=== PATIENT | female | born 1975 | race Caucasian/White ===

== ENCOUNTER → 2016-09-29 | Emergency (ER) | payer MEDICAID, OTHER ==
[~2016-09-29] VITALS: Wt 120.5 kg
[~2016-09-29] MED LIST: CYCL-319 PO; HYDROCODONE/APAP (5/325) TAB PO ONE; NAPR-260 PO
--- NOTE | 2016-09-29 20:49 | RADRPT ---
PROCEDURE: US DVT. CLINICAL INDICATION: Right lower extremity pain and swelling. TECHNIQUE: Multiple longitudinal and transverse images of the right lower extremity veins were obt ained with naidu scale and color Doppler imaging. 2D grayscale measurements with compression, color Doppler flow, and augmentation was performed. The calf veins were interrogated as well. COMPARISON: No prior studies are available for comparison. FINDINGS: The right common femoral, superficial femoral and popliteal veins are normally compressible througho ut. Color flow demonstrates normal filling of the vessel. Normal waveforms are visualized and ther e is normal response to augmentation. The calf veins are visualized and are equally unremarkable. IMPRESSION: 1. No evidence of a deep vein thrombosis involving the right lower extremity. RPTAT: QQ .Angel Black MD, Date Time Electronically viewed and signed by .Angel Black MD, MD on 09/29/2016 20:48 .N/
[2016-09-29 21:08] VITALS: BP 132/86; PULSE 60; RESP 17; TEMP 98
--- NOTE | 2016-09-29 23:59 | ERD ---
ER Documentation Chief Complaint Date/Time DATE: 09/29/16 TIME: 23:56 Chief Complaint RIGHT LEG PAIN X3 WEEKS, NO INJURY HPI This patient is a 41-year-old female presenting to the emergency department with complaints of right calf pain ongoing intermittently for the past 5 weeks. The patient reports associated symptoms of swelling. Symptoms are worsening. Radiation occurs proximally. Alleviating factors include Advil. The patient denies shortness of breath, chest pain, fevers, recent travel, or other symptoms currently. ROS All systems reviewed and are negative except as per history of present illness. Medications Home Meds Active Scripts Naproxen* (Naprosyn*) 500 Mg Tablet, 500 MG PO BID Y for PAIN AND/OR INFLAMMATION, #30 TAB Prov:DOUG DEXTER PA-C 09/29/16 Cyclobenzaprine Hcl* (Cyclobenzaprine Hcl*) 10 Mg Tablet, 10 MG PO TID, #15 TAB Prov:DOUG DEXTER PA-C 09/29/16 PMhx/Soc Medical and Surgical Hx: pt denies Medical Hx, pt denies Surgical Hx History of Surgery: No Anesthesia Reaction: No Hx Neurological Disorder: No Hx Respiratory Disorders: No Hx Cardiac Disorders: No Hx Psychiatric Problems: No Hx Miscellaneous Medical Probl: No Hx Alcohol Use: No Hx Substance Use: No Hx Tobacco Use: No Smoking Status: Never smoker Physical Exam Vitals Vital Signs Date Time Temp Pulse Resp B/P Pulse Ox O2 Delivery O2 Flow Rate FiO2 09/29/16 21:08 98.0 60 17 132/86 99 Room Air 09/29/16 17:51 98.0 88 17 139/89 99 Physical Exam Const: Nontoxic, morbidly obese female in no acute distress. Head: Atraumatic Eyes: Normal Conjunctiva ENT: Normal External Ears, Nose and Mouth. Neck: Full range of motion..~ No meningismus. Resp: Clear to auscultation bilaterally Cardio: Regular rate and rhythm, no murmurs Abd: Soft, non tender, non distended. Normal bowel sounds Skin: No petechiae or rashes Back: No midline or flank tenderness Ext: There is some tenderness palpation of the right calf but no bruising noted. There is no swelling noted of the calves when compared bilaterally. Neur: Awake and alert Psych: Normal Mood and Affect Results 24 hrs Current Medications Medications (Trade) Dose Ordered Sig/Fran Route PRN Reason Start Time Stop Time Status Last Admin Dose Admin Acetaminophen/ Hydrocodone Bitart ([place] (2/001)) 1 tab ONCE ONCE PO 09/29/16 19:00 09/29/16 19:01 DC 09/29/16 18:46 [place] [id number] Radiology Main Line: [phone] DIAGNOSTIC IMAGING REPORT Patient: BREE RUTLEDGE : 1975 Age: 41 Sex: F MR #: [id number] DOS: 09/29/16 0000 Ordering MD: DOUG DEXTER PA-C Location: [facility] Room/Bed: PROCEDURE: US DVT. CLINICAL INDICATION: Right lower extremity pain and swelling. TECHNIQUE: Multiple longitudinal and transverse images of the right lower extremity veins were obtained with naidu scale and color Doppler imaging. 2D grayscale measurements with compression, color Doppler flow, and augmentation was performed. The calf veins were interrogated as well. COMPARISON: No prior studies are available for comparison. FINDINGS: The right common femoral, superficial femoral and popliteal veins are normally compressible throughout. Color flow demonstrates normal filling of the vessel. Normal waveforms are visualized and there is normal response to augmentation. The calf veins are visualized and are equally unremarkable. IMPRESSION: 1. No evidence of a deep vein thrombosis involving the right lower extremity. RPTAT: QQ .Angel Black MD, MD Date Time Electronically viewed and signed by .Angel Black MD, MD on 09/29/2016 20: 48 .N/ CC: DOUG DEXTER PA-C Procedures/MDM 41-year-old female presenting to the emergency department with complaints of right calf pain. On physical examination the patient's vitals are within normal limits. The patient is not hypoxic. There is some tenderness palpation of the right calf. A venous Doppler showed no evidence of DVT and was interpreted by the radiologist. The patient's symptoms are most likely secondary to a muscle strain. She is given a prescription for naproxen and Flexeril and she is stable for outpatient management. Close follow-up with primary care physician was advised. Strict ER return precautions were discussed. I have low suspicion for pulmonary embolism, DVT, or other emergent conditions. Departure Diagnosis: Primary Impression: Strain of calf muscle Encounter type: initial encounter Laterality: right Qualified Code: S86.811A - Strain of calf muscle, right, initial encounter Condition: Fair Patient Instructions: Lower Body Exercises: Calf Stretch Referrals: [facility] YOU HAVE RECEIVED A MEDICAL SCREENING EXAM AND THE RESULTS INDICATE THAT YOU DO NOT HAVE A CONDITION THAT REQUIRES URGENT TREATMENT IN THE EMERGENCY DEPARTMENT. FURTHER EVALUATION AND TREATMENT OF YOUR CONDITION CAN WAIT UNTIL YOU ARE SEEN IN YOUR DOCTORS OFFICE WITHIN THE NEXT 1-2 DAYS. IT IS YOUR RESPONSIBILITY TO MAKE AN APPOINTMENT FOR FOLOW-UP CARE. IF YOU HAVE A PRIMARY DOCTOR --you should call your primary doctor and schedule an appointment IF YOU DO NOT HAVE A PRIMARY DOCTOR YOU CAN CALL OUR PHYSICIAN REFERRAL HOTLINE AT IF YOU CAN NOT AFFORD TO SEE A PHYSICIAN YOU CAN CHOSE FROM THE FOLLOWING [facility] [address] [facility]. [facility] [address] [facility]. [facility] [address] [facility] [facility] [address] [facility]. [facility] [address] [facility]. [facility]. [address] Additional Instructions: Follow up with your PCP within the next 1-3 days for a repeat evaluation. If you require a referral to a specialist, your Primary Care Provider may be able to provide this for you. In most patient cases, a referral is not required. If you have further questions regarding this matter, please ask your Primary Care Provider. Return the the emergency department immediately if symptoms worsen or change. If you have any questions regarding medications, ask your pharmacist or us before you leave. If any adverse reactions, occur while taking your medications, discontinue the treatment and return to the emergency department immediately. If any new or worsening symptoms, uncontrolled fevers, or other unexplained symptoms occur, return to the emergency department immediately. Take your medications as directed, and complete the entire course of treatment. DOUG DEXTER PA-C Sep 29, 2016 23:59
== END | disposition home or self-care (01) ==
LOC: FTE 17:45
DX: S86.811A Strain of other muscle(s) and tendon(s) at lower leg level, right leg, initial encounter (principal); X58.XXXA Exposure to other specified factors, initial encounter; Y92.9 Unspecified place or not applicable
CPT/HCPCS: 93971; Z7502; Z7610